=== PATIENT | female | born 1940 | race Caucasian/White ===

== ENCOUNTER → 2017-10-11 | Outpatient (CLI) | payer OTHER ==
[~2017-10-11] VITALS: Ht 165.1 cm; Wt 57.2 kg
[~2017-10-11] MED LIST: ATIVAN0.5 MG PO; CHOLEST CARE500 MG PO; CITRACAL + BON1 EACH PO; FLONASE 0.05%50 MCG NASAL; MOBIC7.5 MG PO; PREMARIN0.625 MG VAG; PROLIA60 MG/1 ML SQ; TYLENOL325 MG PO; ZANAFLEX4 MG PO; ZOLOFT100 MG PO
--- NOTE | ~2017-10-11 | HPC ---
[facility] [address] [place] [address] PAIN MANAGEMENT CONSULTATION Name: ARISTEO GUIDO Room #: REG INGRIS Bertrand#: [id number] Admission: 10/11/17 Attend Phys: Diomedes Mc DO Discharge: Date of : 38 Report #: [id number] THIS REPORT FOR: //name// CC: Keith Mc The patient is a 77-year-old female, prior seen in pain clinic 08/27/2016, diagnosed with symptomatic lumbar radiculopathy secondary to spinal stenosis. She had had an epidural injection. Again, this has been a little greater than a year ago, L5-S1, it helped with ongoing lumbar radicular pain. Returns to pain clinic today noting that while prior therapy had helped her more radicular component of pain, she now has some little different presentation of pain. I had actually seen her in July at [facility] and did some trigger point injections to help with more myofascial pain. She notes pain primarily is in the right gluteal area and low back. She got 6+ weeks relief following trigger point injections at [facility]. Today, she notes pain is an 8 on VAS, intermittent, sharp, burning pain, right buttock, low back and posterior thigh. She gets some relief when she is recumbent and using a topical vita-iqr-aidsxpy agent. She has a history of osteoarthritis affecting her hands and back. BMI is 21 kilograms per meter squared. Vital signs stable as noted in the EMR. Again, subjective pain score is 8 on VAS. She has fallen in the last month, she fell last week on bleachers at a basketball game. She did not seek care. She simply lost her footing. Her legs did not "give out." She is not on blood thinners. She is not hypertensive. Medication list was reconciled today. She does not use chronic opiates for pain. Former cigarette smoker, she does not use tobacco products presently. PHYSICAL EXAMINATION: Shows a 77-year-old female. Rises from chair using the armrest. Gait is generally tandem. Diffuse tenderness across the low back, trigger points noted in the inferior lumbar paravertebral muscles, anterior inferior latissimus dorsi, gluteus medius and gluteus jessee. Lower extremity strength is symmetric. Straight leg raise negative. ASSESSMENT AND PLAN: Symptomatic myofascial pain component. The patient is scheduled to get cataract surgery 10/15/2017 and the contralateral side 2 weeks later. I told her we want to hold off a few weeks before we injected any steroid agents. We will refer the patient to physical therapy for a TENS unit and for exercises regarding core stabilization. Continue meloxicam 7.5 b.i.d. Again, we will seek authorization for trigger point injections. Given near 100% relief for several months for him with a prior trigger point injections in July. We will have the patient continue with home exercises, PT and NSAIDs. <ELECTRONICALLY SIGNED> By: Diomedes Mc DO 10/14/17 0715 [id number] Diomedes Mc DO /nt
[2017-10-11 10:37] VITALS: BP 130/78
== END ==
LOC: PAIN 07:07
DX: M48.061 Spinal stenosis, lumbar region without neurogenic claudication (principal); M54.16 Radiculopathy, lumbar region; M79.1 Myalgia

== ENCOUNTER → 2020-05-20 | Outpatient (CLI) | payer OTHER | LOC: LAB 09:26 | PROVIDERS: ATTEND Anesthesiology | DX: Z01.812 Encounter for preprocedural laboratory examination (principal); Z20.828 Contact with and (suspected) exposure to other viral communicable diseases ==

== ENCOUNTER → 2020-05-27 | Outpatient (CLI) | payer OTHER | LOC: LAB 12:21 | PROVIDERS: ATTEND Anesthesiology | DX: Z01.812 Encounter for preprocedural laboratory examination (principal); Z20.828 Contact with and (suspected) exposure to other viral communicable diseases ==